=== PATIENT | male | born 1985 | race Caucasian/White ===

== ENCOUNTER 2022-09-10 21:45 | Emergency (ER) | payer OTHER, SELFPAY ==
[2022-09-10 21:47] VITALS: BP 135/81; PULSE 67; RESP 18; TEMP 36.2; O2SAT 98; BMI 26.9
--- NOTE | 2022-09-10 22:27 | EDS_ITS ---
HPI History of Present Illness Chief Complaint: Eye Problem Informant: patient Onset/Context/Timing Location: Right Eye Onset: Yesterday Context: Gradual Onset (While grinding [place] with a cut off blade) Timing: Continuous Current Severity: Moderate Maximum Severity: Moderate Worsened by: Nothing Relieved by: Nothing Associated Symptoms Associated Symptoms - Eyes: Burning, Crusting, Drainage, Eyelid swelling, Foreign body sensation and Redness History of injury: Grinding injury Visual correction: None Narrative Narrative: Foreign body sensation and pain and discharge from his right eye after he was sawing [place] yesterday. The majority of the day seem to be better, but then he was doing more [place] cutting and it seemed to get worse during that tonight. He does not use glasses or contacts. No vision changes except for when his eye is watering. PFSH PFSH Medical History no medical history no medical history Allergy/AdvReac Type Severity Reaction Status Date / Time No Known Allergies Allergy Verified 09/10/22 21:46 Surgical History no surgical history Social History Smoking Status: Never smoker ROS ROS ED Constitutional Constitutional ED: Denies chills or fever(s) Eyes Eyes: Reports as per HPI and eye pain; Denies blurry vision or diplopia ENT ENT ED: Denies ear pain, rhinorrhea or sore throat Neurologic Neurologic: Denies headache(s), paresthesias or weakness EXAM Physical Exam Const Vital Signs: 09/10/22 21:47 Temperature 97.2 F L Temperature Source Temporal Pulse Rate 67 Respiratory Rate 18 Blood Pressure 135/81 H Blood Pressure Mean 99 Pulse Ox 98 Oxygen Delivery Method Room Air Positive well nourished and well developed General Appearance ED: well developed and NAD HEENT HEENT Narrative: Mild diffuse periorbital erythema and swelling, limited to the eyelids themselves along with palpebral conjunctival injection. No bony tenderness or major soft tissue tenderness periorbital. Left eye periorbital areas are normal. atraumatic and tenderness Mouth ED: Yes oral and palatal mucosa normal and Yes lips normal Mouth: oral and palatal mucosa normal and lips normal Eyes PERRL and EOMs intact bilaterally Eyes Narrative: Diffuse injection right. No hyphema or hypopyon on slit-lamp exam. Anterior chamber deep and quiet, no cell or flare seen. There appears to be some fine debris on the cornea that is mobile, as well as the bulbar conjunctive a, there is some focal chemosis temporally, everything else is diffusely injected. There is no dye uptake on the cornea or Suman sign. Neck no lymphadenopathy and supple Neuro oriented x3, CN's II-XII intact bilaterally and gait normal Sensorium / Orientation: alert Skin Lesions: no lesions Rashes: no rashes MDM MDM MDM Narrative Medical decision making narrative: I think he probably has some injury to the conjunctive a, and resultant conjunctivitis. Anesthetizing with tetracaine which took care of his pain temporarily. Irrigated profusely with Ben lens, and reinspected with slit- lamp, I see no fine debris foreign material. Will prescribe antibiotic drops and advised close outpatient follow-up if he does not have resolution within the next 3 to 4 days. Discharge Plan Triage Chief Complaint: Eye Problem ED Provider: Taj Basurto Dx/Rx/DC Orders Clinical Impression: Foreign body in conjunctival sac, right eye, initial encounter, Acute conjunctivitis of right eye Instructions: ED Conjunctivitis, Nonspecific Primary Care Provider: Cristiano Corral Referrals: Cristiano Corral MD [Primary Care Provider] - Marco A Flaherty MD [Med Staff - Active Staff] - Activity Restrictions/Additional Instructions: Antibiotic drops: 1 drop to the right eye 4 times daily; ideally, place the drop in the eye, then close your eye for 2-3 minutes and tip your head down as though looking at the floor, try not to blink or squeeze your eyelids so that you squeeze the drop out. Disposition Disposition: Home, Self Care
[2022-09-10] MEDS: Fluorescein 1 MG STRIP 1 STRIP RIGHT EYE (23:07)
[2022-09-10] MEDS: Tetracaine 0.5% Ophthalmic Bottle 2 DRP RIGHT EYE (23:07)
[2022-09-11] MEDS: Gentamicin Sulfate 1 OPTH.BTL 1 DRP RIGHT EYE (00:45)
== END 2022-09-11 00:46 | disposition home or self-care (01) ==
PROVIDERS: Emergency Provider Emergency Medicine; PCP Family Medicine; Visit Provider Emergency Medicine
DX: H10.31 Unspecified acute conjunctivitis, right eye (principal); T15.11XA Foreign body in conjunctival sac, right eye, initial encounter; X58.XXXA Exposure to other specified factors, initial encounter
CPT/HCPCS: 99284; J7030